=== PATIENT | male | born 1990 | race Caucasian/White ===

== ENCOUNTER 2017-06-08 21:59 | Emergency (ER) | payer OTHER ==
[~2017-06-08] VITALS: Ht 172.7 cm; Wt 65.8 kg
[2017-06-08] MEDS ORDERED: LEVE500T9 PO (22:19)
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
--- NOTE | 2017-06-08 22:56 | NUR ---
YESSICA PARMAR AT BEDSIDE FOR MSE.
--- NOTE | 2017-06-08 23:41 | NUR ---
Patient discharged to home in stable conditon. Written and verbal after care instructions given. Patient verbalizes understanding of instructions. Pt ambulated from ER w/ steady gait. VSS. No distress noted. Pt provided snack upon departure. Pt took all personal belingings.
[2017-06-08 23:43] VITALS: BP 124/88
== END 2017-06-08 23:48 | disposition home or self-care (01) ==
LOC: ER 21:59
DX: G40.909 Epilepsy, unspecified, not intractable, without status epilepticus (principal); Z88.0 Allergy status to penicillin; Z79.899 Other long term (current) drug therapy